=== PATIENT | male | born 1960 | race Hispanic/Latino ===

== ENCOUNTER 2019-03-04 17:33 | Observation (INO) | payer BC, OTHER ==
[2019-03-04] MEDS ORDERED: Nitroglycerin 0.4 MG TAB (25 Tab Bottle) ONE (17:56)
[2019-03-04] MEDS ORDERED: Aspirin Chewable 81 MG TAB ONE (17:56)
[2019-03-04 18:08] LABS: #Basophils 0.1 thou/uL (0.0-0.2); #Eosinphils 0.1 thou/uL (0.0-0.7); #Lymphocytes 1.9 thou/uL (1.20-3.40); #Monocytes 0.6 thou/uL (0.11-0.59); #Neutrophils 5.7 thou/uL (1.40-6.50); %Basophils 1.7 % (0.0-1.0); %Eosinophils 1.6 % (0.0-10.0); %Lymphocytes 22.7 % (21.0-51.0); Hemoglobin 14.6 g/dL (14.0-18.0); Mean Corpuscular HGB CONC 35.3 g/dL (32.0-36.0); Mean Corpuscular Volume 84.9 fL (78.0-98.0); Mean Platelet Volume 8.7 fL (7.4-10.4); Platelet Count 218 thou/uL (130-400); RBC Distribution Width 11.6 % (11.5-14.5); Red Blood Cell (RBC) Count 4.86 mill/uL (4.70-6.10); White Blood Cell (WBC) Count 8.5 thou/uL (4.8-10.8)
--- NOTE | 2019-03-04 18:15 | RAD ---
EXAM: Single view of the chest HISTORY: Chest pain for 2 weeks COMPARISON: None FINDINGS: Single view of the chest shows a normal sized cardiomediastinal silhouette. The patient is status post sternotomy. There is no evidence of consolidation, mass, or pleural effusion. The bones are unremarkable. IMPRESSION: No evidence of acute cardiopulmonary disease
[2019-03-04 18:24] LABS: ALT (SGPT) 45 U/L (8-55); AST (SGOT) 25 U/L (5-34); Albumin 4.2 g/dL (3.4-4.8); Alkaline Phosphatase 97 U/L (40-150); Anion Gap 13 mmol/L (10-20); BUN (Urea Nitrogen) 15 mg/dL (8.4-25.7); Bilirubin, Total 0.5 mg/dL (0.2-1.2); Calc. Creatinine Clearance 0 mL/min (70-130); Calcium 9.3 mg/dL (7.8-10.44); Carbon Dioxide 27 mmol/L (23-31); Chloride 103 mmol/L (98-107); Estimated GFR-MDRD Greater than 90; Globulin 3.2 g/dL (2.4-3.5); Glucose 83 mg/dL (80-115); Potassium 4.1 mmol/L (3.5-5.1); Protein, Total 7.4 g/dL (5.8-8.1); Sodium 139 mmol/L (136-145)
[2019-03-04 20:03] VITALS: BMI 30.9
[2019-03-04] MEDS ORDERED: Ondansetron PF 4 MG/2 ML Vial IVP PRN (20:17)
[2019-03-04] MEDS ORDERED: Acetaminophen 325 MG TAB PO PRN (20:17)
[2019-03-04] MEDS ORDERED: Ondansetron ODT 4 MG TAB SL PRN (20:17)
[2019-03-04 21:55] LABS: Troponin I Less than 0.010 ng/mL (< 0.028)
[2019-03-04] MEDS ORDERED: cloNIDine 0.1 MG TAB PO PRN (22:02)
[2019-03-05 01:15] LABS: Troponin I Less than 0.010 ng/mL (< 0.028)
[2019-03-05 07:58] VITALS: TEMP 98
[2019-03-05] MEDS ORDERED: Lisinopril 10 MG TAB PO SCH (09:00)
[2019-03-05] MEDS ORDERED: Aspirin 325 MG TAB PO SCH (09:00)
[2019-03-05] MEDS ORDERED: Aspirin 325 mg Enteric Coated Tablet PO SCH (09:00)
[2019-03-05] MEDS ORDERED: Enoxaparin Sodium 40 MG/0.4 ML SYRINGE SC SCH (09:00)
[2019-03-05] MEDS ORDERED: Lisinopril 20 MG TAB PO SCH (09:00)
[2019-03-05] MEDS ORDERED: Aspirin Chewable 81 MG TAB PO SCH (09:00)
[2019-03-05 11:47] VITALS: BP 154/75
--- NOTE | 2019-03-05 12:08 | NM ---
EXAM: CARDIAC SPECT HISTORY: Chest pain, coronary artery disease, CABG, hypertension, dyslipidemia TECHNIQUE: A myocardial perfusion scan was performed using the single isotope 1 day protocol with montrell hnetium 99m sestamibi. [10 mCi] was injected intravenously for the rest exam followed by 30 mCi for the stress study. Exercise stress was monitored and interpreted by Dr. Guadarrama FINDINGS: Homogeneous tracer distribution is seen in the myocardial segments on stress and rest image s without fixed or reversible defects. Gated SPECT LVEF: 62% Wall motion exam: Normal IMPRESSION: Normal myocardial perfusion scan
--- NOTE | 2019-03-05 12:13 | HP ---
HISTORY OF PRESENT ILLNESS: The patient is a 59-year-old male with known history of atherosclerotic coronary artery disease, status post coronary artery bypass graft approximately 11 years ago. He presented to the emergency room in [place] complaining of substernal chest pain, not really associated with any shortness of breath, but there is no radiation to his left jaw. He had been previously treated by me for a right ear infection and is currently on amoxicillin. He notes no nausea, vomiting, or diarrhea, seen and evaluated in the ER. No acute coronary syndrome was identified both by troponins as well as EKG. He was given some sublingual nitroglycerin as well as aspirin, which he states did help relieve his pain as noted. As noted, he has a history of previous atherosclerotic coronary artery disease status post coronary artery bypass graft prior to surgery. He did suffer a small NC. He has had no further cardiac intervention since the surgery. He is currently taking daily medications. He has a good follow up and is very compliant with doctor's followup. He has a followup with Dr. Stallworth next week. At this current time, he is currently chest pain free, feels much better. Otherwise, no other medical complaints are noted. ALLERGIES: HE HAS NO KNOWN ALLERGIES. CURRENT MEDICATIONS: 1. Aspirin 81 mg daily. 2. Atorvastatin 20 mg daily. 3. Lisinopril 20 mg daily. 4. Metoprolol 25 mg daily. PAST MEDICAL HISTORY: Positive for hypertension and hypercholesterolemia. PAST SURGICAL HISTORY: Positive for the above noted coronary artery bypass graft, hernia repair, as well as appendectomy. SOCIAL AND PERSONAL HISTORY: He is . He does not smoke. Drinks alcohol occasionally. REVIEW OF SYSTEMS: GI: Negative. : Negative. CARDIOVASCULAR: Positive as above. RESPIRATORY: Positive as above. NEUROLOGICAL: Negative. FAMILY HISTORY: Noncontributory at this time. PHYSICAL EXAMINATION: VITAL SIGNS: Temperature 97.5, BP 168/83, O2 sats 97%, pulse 70. GENERAL: He is alert and oriented x3. HEENT: Normocephalic and atraumatic. Sclerae not clear. NECK: Supple. Full range of motion. No masses. No bruits auscultated. Thyroid is midline. No thyromegaly or thyroid masses. LUNGS: Clear. HEART: Reveals a regular rate and rhythm without murmurs, gallops, or rubs. ABDOMEN: Soft and nontender. Bowel sounds are present and active. No hepatosplenomegaly is noted. LABORATORY DATA: His white blood count is 8.5, hemoglobin is 14.6, hematocrit is 41.3. Sodium 139, potassium 4.1, chloride 103, CO2 of 27, BUN 15, creatinine 0.79. Troponins x3 are negative. IMAGING STUDIES: Chest x-ray is clear. EKG reveals sinus rhythm, no acute changes. IMPRESSION: A 59-year-old male with a previous history of atherosclerotic coronary artery disease, presents with chest pain. PLAN: The patient will undergo a cardiac stress test today. Further cardiac testing and referral will be depending on the EKG stress test. Job ID: [id number]
[2019-03-05] MEDS ORDERED: Atorvastatin Calcium 20 MG TAB PO SCH (21:00)
== END 2019-03-05 13:50 | disposition home or self-care (01) ==
LOC: SCSER 17:33 → 2SW 18:40
PROVIDERS: ADMIT Family Medicine; ATTEND Family Medicine
DX: R07.2 Precordial pain (principal); I25.10 Atherosclerotic heart disease of native coronary artery without angina pectoris; I10 Essential (primary) hypertension; E78.00 Pure hypercholesterolemia, unspecified; F17.290 Nicotine dependence, other tobacco product, uncomplicated; Z95.1 Presence of aortocoronary bypass graft; Z79.2 Long term (current) use of antibiotics; Z79.82 Long term (current) use of aspirin; Z79.899 Other long term (current) drug therapy
CPT/HCPCS: 36415; 71045; 78452; 80053; 84484; 85025; 93017; 96372; A9500; G0378; J1650

== ENCOUNTER 2023-12-14 13:10 | Emergency (ER) | payer MEDICARE ==
[2023-12-14 13:46] LABS: %Basophils 1.1 % (0.0-1.0); %Lymphocytes 23.3 % (21.0-51.0); %Monocytes 7.5 % (0.0-10.0); %Neutrophils 66.9 % (42.0-75.0); Hematocrit 43.6 % (42.0-52.0); Mean Corpuscular HGB CONC 34.4 g/dL (32.0-36.0); Mean Corpuscular Hemoglobin 29.5 pg (27.0-31.0); Mean Corpuscular Volume 85.8 fl (78.0-98.0); Mean Platelet Volume 10.3 fL (7.4-10.4); Platelet Count 270 10x3/uL (130-400); RBC Distribution Width 12.6 % (11.5-14.5); Red Blood Cell (RBC) Count 5.08 mill/uL (4.70-6.10)
[2023-12-14 13:59] LABS: Troponin I Less than 0.010 ng/mL (< 0.028)
[2023-12-14] MEDS ORDERED: Meclizine HCl 25 MG TAB ONE ×2 (14:26→15:43)
[2023-12-14] MEDS ORDERED: Acetaminophen 500 MG TAB ONE (15:43)
[2023-12-14 17:20] LABS: ALT (SGPT) 28 U/L (8-55); AST (SGOT) 19 U/L (5-34); Albumin 4.5 g/dL (3.4-4.8); Alkaline Phosphatase 81 U/L (40-110); Anion Gap 15 mmol/L (10-20); BUN (Urea Nitrogen) 22 mg/dL (8.4-25.7); Bilirubin, Total 1.1 mg/dL (0.2-1.2); Calc. Creatinine Clearance 0 mL/min (70-130); Calcium 10.2 mg/dL (7.8-10.44); Carbon Dioxide 24 mmol/L (23-31); Chloride 103 mmol/L (98-107); Estimated GFR 81; Glucose 108 mg/dL (80-115); Magnesium 2.1 mg/dL (1.6-2.6); Potassium 4.4 mmol/L (3.5-5.1); Protein, Total 7.5 g/dL (5.8-8.1); Sodium 138 mmol/L (136-145)
== END 2023-12-14 18:15 | disposition home or self-care (01) ==
LOC: ERS 13:10
DX: R42 Dizziness and giddiness (principal); R11.0 Nausea; I10 Essential (primary) hypertension; Z55.6 Problems related to health literacy; Z79.82 Long term (current) use of aspirin; Z79.899 Other long term (current) drug therapy
CPT/HCPCS: 36415; 70450; 71045; 80053; 83690; 83735; 84484; 85025; 87070; 87635; 93005; 96360